=== PATIENT | female | born 1980 | race Caucasian/White ===

== ENCOUNTER 2019-07-24 12:30 | Emergency (ER) | payer OTHER, SELFPAY ==
[2019-07-24 13:03] LABS: Bilirubin Negative (Negative); Blood, Urine Trace (Negative); Clarity Clear (Clear); Glucose, Urine (Dipstick) Negative (Negative); Leukocyte Trace (Negative); Nitrite Negative (Negative); Protein, Urine (Dipstick) Negative (Neg-Trace); Urobilinogen 0.2 mg/dL (Less than 2)
[2019-07-24] MEDS ORDERED: Ondansetron ODT 4 MG TAB ONE (13:11)
[2019-07-24 17:42] LABS: RBC/HPF 0-3 HPF (0-3); Squamous Epithelial 0-3 HPF (0-3)
== END 2019-07-24 13:12 | disposition home or self-care (01) ==
LOC: NAV ERS 12:30
DX: S09.90XA Unspecified injury of head, initial encounter (principal); F90.9 Attention-deficit hyperactivity disorder, unspecified type; Z79.899 Other long term (current) drug therapy; W22.8XXA Striking against or struck by other objects, initial encounter
CPT/HCPCS: 81003; 81015; 99283; Q0162